=== PATIENT | female | born 1965 | race Caucasian/White ===

== ENCOUNTER 2016-10-01 13:16 | Emergency (ER) | payer OTHER ==
--- NOTE | 2016-10-01 14:13 | ERNOTE ---
Lower Extremity HPI - Narrative Date of Service: 10/01/16 - General Lower Extremities Pain: thigh: right Time Seen by Provider: 10/01/16 14:02 Source: patient, RN notes reviewed Exam Limitations: no limitations - Immun/Allergies/Home Medications Immunizations: IMMUNIZATION HX History of Influenza Vaccine No Hx Pneumococcal Vaccination No Allergies/Adverse Reactions: Allergies Allergy/AdvReac Type Severity Reaction Status Date / Time No Known Allergies Allergy Verified 10/01/16 13:36 Home Medications: HOME MEDICATIONS Atenolol [Tenormin] 50 mg PO DAILY 01/03/16 [Last Taken Unknown] Levothyroxine Sodium [Synthroid] 50 mcg PO DAILY 01/03/16 [Last Taken Unknown] Lisinopril [Zestril] 10 mg PO DAILY 01/03/16 [Last Taken Unknown] Clotrimazole/Betamethasone Dip [Lotrisone Cream] 1 appl TP BID 03/07/16 [Last Taken Unknown] Ergocalciferol [Calciferol, Vitamin D] 50,000 units PO Q7D 03/07/16 [Last Taken Unknown] Ranitidine HCl [Zantac] 300 mg PO HS 03/07/16 [Last Taken Unknown] Cyclobenzaprine HCl [Flexeril] 10 mg PO TID PRN #20 tab 10/01/16 [Last Taken Unknown] Ibuprofen [Motrin] 600 mg PO Q6H PRN #40 tab 10/01/16 [Last Taken Unknown] - History of Present Illness Narrative: 51 y/o female ambulatory to the ED with her for pain in her right leg that began 3 days ago without incident. She had a DVT in the same extremity approximately 6 months ago. Her Coumadin was stopped last month. Method of Injury: Reports: no apparent injury Modifying Factors - (Improves): Reports: rest Modifying Factors - (Worsens): Reports: movement Subsequent Symptoms: Denies: sensory loss, numbness, motor loss Prior Treament: Reports: similar symptoms before Review of Systems - Review of Systems Constitutional: Absent: recent illness, fever, chills EYE: Present: no symptoms reported ENT: Present: no symptoms reported Respiratory: Absent: shortness of breath, cough Cardiology: Absent: chest pain, edema Gastrointestinal/Abdominal: Absent: nausea, vomiting, abdominal pain Genitourinary: Present: no symptoms reported Musculoskeletal: Present: muscle pain. Absent: back pain, joint pain Skin: Absent: rash, lesions, lumps, change in color Neurological: Absent: weakness, numbness, tingling Endocrine: Present: no symptoms reported Hematologic/Lymphatic: Present: no symptoms reported Psych: Present: no symptoms reported - Patient's Past Medical History Patient History - Medical: No pertinent hx Patient History - Cardiac/Respiratory: Deep Vein Thrombosis, Hypertension, Hyperlipidemia Patient History - Cancer: No Hx of Cancer Patient History - Surgical Procedures: Colon Resection, Other Patient History - Other: None - Social History Living Situations: home Psych History: No pertinent hx Smoking Status: Never smoker Alcohol Use: none Drug Use: none - Immunizations Hx Pneumococcal Vaccination: No History of Influenza Vaccine: No Physical Exam - Physical Exam General Appearance: Present: wd/wn, alert, no apparent distress Neck: Present: normal inspection, nontender, supple Respiratory: Present: no respiratory distress, normal breath sounds, no accessory muscle use, lungs clear Cardiovascular/Chest: Present: regular rate, rhythm, no murmur, normal peripheral pulses Back Exam: Present: normal inspection, normal range of motion, no CVA tenderness , no vertebral tenderness Extremity Exam: Present: no edema, decreased range of motion - painful - right leg, tender to palpation along lateral thigh. Absent: pedal edema, joint swelling, extremity edema Neurological Exam: Present: alert, oriented, normal mood/affect, no motor/ sensory deficits Skin Exam: Present: normal color, warm/dry ED Progress - Results and Orders Patient's Lab Results:: I have reviewed the patient's lab results. - Vital Signs Patient's Vital Signs:: I have reviewed the patient's vital signs. Vital Signs: Vital Signs 10/01/16 13:31 Temperature 36.8 C Pulse Rate 77 Respiratory 14 Rate Blood Pressure 150/80 O2 Sat by Pulse 100 Oximetry - CT/Ultrasound CT/Ultrasound Narrative: US of RLE shows no evidence of DVT - Progress/Reassessment Chief Complaint: Lower Extremity Pain/ Injury Progress:: Unchanged Departure Clinical Impression: Right leg pain, Muscle strain - Departure Disposition: Home self-care Condition: Good Instructions: Muscle Strain, [id number], Form - Excuse from Work, School, or Physical Activity Additional Instructions: Heat to sore area as needed Follow up with your doctor if no improvement next week Referrals: Chichi Dent MD [Primary Care Provider] - Prescriptions: Cyclobenzaprine HCl [Flexeril] 10 mg PO TID PRN #20 tab PRN Reason: MUSCLE SPASMS Ibuprofen [Motrin] 600 mg PO Q6H PRN #40 tab PRN Reason: Pain
[2016-10-01] MEDS ORDERED: KETOROLAC TROMETHAMINE 60 MG/2 ML VIAL IM ONE ×2 (14:34→14:39)
[2016-10-01 15:00] LABS: Hematocrit 38.7 % (37.0-47.0); Hemoglobin 12.7 gm/dL (12.5-16.0); Mean Corpuscular Hemoglobin 31.5 pg (27-31); Mean Corpuscular Hgb Conc 32.8 g/dl (32-36); Mean Platelet Volume 10.5 fl (6.0-9.5); Neutrophil # 3.8 K/mm3 (1.3-6.0); Neutrophil % 47.3 % (42-75.0); Platelet Count 322 K/mm3 (150-450); Red Blood Count 4.03 M/mm3 (4.2-5.4); Red Cell Distribution Width 12.7 % (11.5-14.0)
[2016-10-01 15:08] LABS: BUN/Creatinine Ratio 23.6 (9.0-21.6); Bilirubin, Total 0.4 mg/dL (0.0-1.1); Ca. Corrected For Albumin 8.1 mg/dL (8.4-10.2); Calcium * 8.4 mg/dL (7.9-10.9); Carbon Dioxide 28.3 mmol/L (24-32.6); Potassium 4.3 mmol/L (3.4-4.6); Total Protein 7.7 gm/dL (6.2-8.2)
[2016-10-01 15:13] LABS: INR 0.96 INR (0.90-1.10)
--- OUTSIDE RECORDS SUMMARY | 2016-10-01 16:20 | XMS REPORT | Continuity of Care Document ---
:1965 Author Organization [facility] ([facility]) Address [address] [place] [address] Phone [phone] Care Team Providers Name Role Phone Chichi Dent Primary Care Provider [phone] Source Comments This disclosure is being made pursuant to the Care Everywhere program, applicable federal and state laws, and may not contain all informaitonavailable regarding this patient.[facility] ([facility]) Active Allergies and Adverse Reactions No Known Allergies Current Medications Prescription Sig. Disp. Refills Start Date End Date Status atenolol 50 mg Take 1 Tab by mouth 30 Tab 6 01/31/2014 Active tablet daily. Indications: HYPERTENSION lisinopril 10 mg Take 2 Tabs by mouth 60 Tab 6 01/31/2014 Active tablet daily. Indications: HYPERTENSION ranitidine 150 mg Take 1 Tab by mouth 2 120 Tab 11 01/31/2014 Active tablet times daily. Indications: GASTROESOPHAGEAL REFLUX DEXTRAN Instill onto the eye Active 70/HYPROMELLOSE as needed (ARTIFICIAL TEARS (PF) OPHTH) warfarin 5 mg tablet Take 5 mg by mouth Active daily. On Friday she takes 7.5 mg dorzolamide-timolol Instill 1 Drop onto 10 mL 11 01/29/2016 Active (COSOPT) 2-0.5 % the left eye 2 times ophthalmic solution daily. acetaminophen Take 650 mg by mouth Active (TYLENOL ARTHRITIS every 8 hours as PAIN) 650 mg CR needed. 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 Exotropia s/p strabismus surgery 02/19/2012 MGD (meibomian gland disease) 10/08/2011 Refractive error 09/13/2010 Status post Penetrating Keratoplasty, left eye, 09/201009/10/2010 Essential hypertension 05/17/2010 History of cornea transplant (PKP OS 09/10/10) 09/07/2009 Resolved Problems Problem Noted Date Resolved Date Astigmatism of right eye 09/23/2013 09/23/2013 Borderline steroid-induced glaucoma 05/10/2013 09/21/2013 Severe stage glaucoma 05/10/2013 08/28/2016 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 07/26/2015 Severe stage glaucoma 01/06/2013 03/17/2013 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, left eye 04/29/2012 03/17/2013 Overview: Versus post surgical glaucoma Irregular astigmatism 09/13/2010 02/13/2012 Exotropia of left eye 09/13/2010 07/01/2011 Amblyopia of left eye 09/13/2010 02/13/2012 Ocular hypertension left eye 09/12/2010 04/29/2012 Most Recent Encounters Date Type Specialty Providers Description 08/28/2016 Office Visit Ophthalmology - Danial Lazar MD Dx: Severe stage Specialty glaucoma (Primary Dx) 07/31/2016 Office Visit Ophthalmology - Danial Lazar MD Chief Comp: Patient Specialty Reported Reason For Visit Immunizations Name Dates Previously Given Next Due Influenza, PF 04/20/2012,08/13/2011 Influenza, quadrivalent PF 05/12/2013 Tdap 08/13/2011 Social History Tobacco Use Types Packs/Day Years Used Date Never Smoker Smokeless Tobacco: Never Used Tobacco Cessation:Counseling Given: Yes Comments: Alcohol Use Drinks/Week oz/Week Comments Yes 8 Cans of beer 4.0 3-4 beers once or twice a week . cut back a lot Last Filed Vital Signs Vital Sign Reading Time Taken Blood Pressure 110/51 01/10/2015 1:45 PM CDT Pulse 64 01/10/2015 10:02 AM CDT Temperature 36.4 C (97.5 F) 01/10/2015 1:20 PM CDT Respiratory Rate 14 01/10/2015 10:02 AM CDT Height 1.549 m (5' 1") 12/21/2014 3:13 PM CDT Weight 71.5 kg (157 lb 10.1 oz) 01/10/2015 10:02 AM CDT Body Mass Index 29.8 01/10/2015 10:02 AM CDT Oxygen Saturation 99% 01/10/2015 1:45 PM CDT Plan of Care Patient Goal Type Goal Diet Have 3 meals a day Decrease soda or juice intake Date Type Specialty Providers Description 03/17/2017 Appointment Ophthalmology - Danial Lazar MD Chief Comp: Patient Specialty [address] [place] [address] Visit [phone] (Fax) 05/21/2017 Appointment Ophthalmology - Vj San, Chief Comp: Patient Specialty MD Reported Reason For [address] [place] [address] [phone] (Fax) Health Maintenance Due Date Last Done Comments Hepatitis B Vaccine (1 of 3 1965 - Primary Series) MMR Vaccine 1984 Mammogram 04/20/2013 04/20/2012, 04/17/2011 Cervical Cancer Screening 11/03/2015 11/02/2012, Additional history exists 05/13/2012, 04/20/2012 Influenza Vaccine: Seasonal 03/04/2016 05/12/2013, (#1) 04/20/2012, 08/13/2011 Colonoscopy 08/10/2016 Lipid Disorder Screening 08/20/2017 08/20/2012, 08/13/2011, 05/17/2010 Td Vaccine 08/13/2021 08/13/2011 Tdap Vaccine Completed 08/13/2011 Results from Last 3 Months Not on file
[2016-10-01 16:53] VITALS: BP 154/83
== END 2016-10-01 15:32 | disposition home or self-care (01) ==
LOC: ER 13:16
DX: S76.911A Strain of unspecified muscles, fascia and tendons at thigh level, right thigh, initial encounter (principal); M79.604 Pain in right leg; Z86.718 Personal history of other venous thrombosis and embolism; I10 Essential (primary) hypertension

== ENCOUNTER 2016-12-23 13:31 | Emergency (ER) | payer OTHER ==
[2016-12-23 14:03] VITALS: BP 151/85
--- NOTE | 2016-12-23 14:33 | ERNOTE ---
Lower Extremity HPI - General Lower Extremities Pain: leg: right Time Seen by Provider: 12/23/16 14:23 Source: patient, family Exam Limitations: no limitations - Immun/Allergies/Home Medications Immunizations: IMMUNIZATION HX Immunizations Up to Date Yes History of Influenza Vaccine Yes Hx Pneumococcal Vaccination No Allergies/Adverse Reactions: Allergies Allergy/AdvReac Type Severity Reaction Status Date / Time No Known Allergies Allergy Verified 10/01/16 13:36 Home Medications: HOME MEDICATIONS Atenolol [Tenormin] 50 mg PO DAILY 01/03/16 [Last Taken Unknown] Levothyroxine Sodium [Synthroid] 50 mcg PO DAILY 01/03/16 [Last Taken Unknown] Lisinopril [Zestril] 10 mg PO DAILY 01/03/16 [Last Taken Unknown] Ergocalciferol [Calciferol, Vitamin D] 50,000 units PO Q7D 03/07/16 [Last Taken Unknown] Ranitidine HCl [Zantac] 300 mg PO HS 03/07/16 [Last Taken Unknown] Cyclobenzaprine HCl [Flexeril] 10 mg PO TID PRN #20 tab 10/01/16 [Last Taken Unknown] Ibuprofen [Motrin] 600 mg PO Q6H PRN #40 tab 10/01/16 [Last Taken Unknown] Cyclobenzaprine HCl [Flexeril] 10 mg PO TID PRN #30 tab 12/23/16 [Last Taken Unknown] Naproxen [Naprosyn] 500 mg PO BID #60 tablet 12/23/16 [Last Taken Unknown] predniSONE [Deltasone] 20 mg PO BID #10 tablet 12/23/16 [Last Taken Unknown] - History of Present Illness Narrative: Patient presents with right lateral thigh pain, she states that 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 Occurred: other - slowly over the past week or two Method of Injury: Reports: no apparent injury Modifying Factors - (Worsens): Reports: other - being on her feet all day Other Injuries: Reports: none Review of Systems - Review of Systems Constitutional: Present: See HPI EYE: Present: no symptoms reported ENT: Present: no symptoms reported Respiratory: Present: no symptoms reported Cardiology: Present: no symptoms reported Gastrointestinal/Abdominal: Present: no symptoms reported Genitourinary: Present: no symptoms reported Musculoskeletal: Present: See HPI, muscle pain Skin: Present: no symptoms reported Neurological: Present: no symptoms reported Endocrine: Present: no symptoms reported Hematologic/Lymphatic: Present: no symptoms reported Psych: Present: no symptoms reported - Patient's Past Medical History Patient History - Medical: No pertinent hx Patient History - Cardiac/Respiratory: Deep Vein Thrombosis, Hypertension, Hyperlipidemia Patient History - Cancer: No Hx of Cancer Patient History - Surgical Procedures: Colon Resection, Other Patient History - Other: None - Social History Living Situations: home Abuse History: No History of abuse Psych History: No pertinent hx Smoking Status: Never smoker Alcohol Use: none Drug Use: none - Immunizations Immunizations Up to Date: Yes Hx Pneumococcal Vaccination: No History of Influenza Vaccine: Yes Physical Exam - Physical Exam General Appearance: Present: wd/wn, alert, moderate distress Eye Exam: Normal inspection: bilateral, PERRL: bilateral Ears, Nose, Throat: Present: normal ENT inspection, H, normal pharynx Neck: Present: normal inspection, nontender Respiratory: Present: no respiratory distress, normal breath sounds, no accessory muscle use, chest nontender, lungs clear Cardiovascular/Chest: Present: regular rate, rhythm, no murmur, normal peripheral pulses Gastrointestinal/Abdominal: Present: normal bowel sounds, nontender, nondistended, soft, no organomegaly Rectal Exam: Present: deferred Back Exam: Present: normal inspection, normal range of motion Extremity Exam: Present: normal range of motion, no edema, other - muscle tenderness along the entire IT band on the right Neurological Exam: Present: alert, oriented, normal mood/affect Skin Exam: Present: normal color, warm/dry Lymphatic Exam: Present: no adenopathy ED Progress - Vital Signs Patient's Vital Signs:: I have reviewed the patient's vital signs. Vital Signs: Vital Signs 12/23/16 13:59 Temperature 36.7 C Pulse Rate 84 Respiratory 17 Rate Blood Pressure 151/85 O2 Sat by Pulse 100 Oximetry - Progress/Reassessment Chief Complaint: Lower Extremity Pain/ Injury Plan - Plan Plan: Patient will be started on a muscle relaxer, and NSAID and a brief course of some prednisone to try to help with the inflammation and the muscle spasm. Patient will try to get in to a regular muscle stretching regimen and will follow up with her family physician in approximately 1 week Departure Clinical Impression: IT band syndrome Qualifiers: Laterality: right Qualified Code(s): M76.31 - Iliotibial band syndrome, right leg - Departure Disposition: Home self-care Condition: Good Instructions: Muscle Cramps and Spasms Referrals: Chichi Dent MD [Primary Care Provider] - Prescriptions: Cyclobenzaprine HCl [Flexeril] 10 mg PO TID PRN #30 tab PRN Reason: MUSCLE SPASMS Naproxen [Naprosyn] 500 mg PO BID #60 tablet predniSONE [Deltasone] 20 mg PO BID #10 tablet
--- OUTSIDE RECORDS SUMMARY | 2016-12-23 14:36 | XMS REPORT | Continuity of Care Document ---
:1965 Author Organization [facility] ([facility]) Address [address] [place] [address] Phone [phone] Care Team Providers Name Role Phone Chichi Dent Primary Care Provider [phone] Source Comments This disclosure is being made pursuant to the Care Everywhere program, applicable federal and state laws, and may not contain all informaitonavailable regarding this patient.[facility] ([facility]) Active Allergies and Adverse Reactions No Known [...] 02/13/2012 Ocular hypertension left eye 09/12/2010 04/29/2012 Immunizations Name Dates Previously Given Next Due [...] Specialty [address] [place] [address] Visit [phone] (Fax) 05/26/2017 Appointment Ophthalmology - Vj San, Chief Comp: Patient Specialty MD Reported Reason For [address] [place] [address] [phone] (Fax) Health Maintenance Due Date Last Done Comments Hepatitis B Vaccine (1 of 3 1965 - Primary Series) MMR Vaccine 1984 Mammogram 04/20/2013 04/20/2012, 04/17/2011 Cervical Cancer Screening 11/03/2015 11/02/2012, Additional history exists 05/13/2012, 04/20/2012 Colonoscopy 08/10/2016 Lipid Disorder Screening 08/20/2017 08/20/2012, 08/13/2011, 05/17/2010 Td Vaccine 08/13/2021 08/13/2011 Tdap Vaccine Completed 08/13/2011 Influenza Vaccine: Seasonal Completed 05/12/2013, 04/20/2012, 08/13/2011 Results from Last 3 Months Not on file
== END 2016-12-23 14:37 | disposition home or self-care (01) ==
LOC: ER 13:31
DX: M76.31 Iliotibial band syndrome, right leg (principal); I10 Essential (primary) hypertension; E78.5 Hyperlipidemia, unspecified

== ENCOUNTER 2017-01-04 11:51 | Emergency (ER) | payer OTHER ==
--- OUTSIDE RECORDS SUMMARY | 2017-01-04 12:09 | XMS REPORT | Continuity of Care Document ---
:1965 Author Organization [facility] ([facility]) Address [address] [place] [address] Phone [phone] Care Team Providers Name Role Phone Chichi Dent Primary Care Provider [phone] Source Comments This disclosure is being made pursuant to the Care Everywhere program, applicable federal and state laws, and may not contain all informaitonavailable regarding this patient.[facility] ([facility]) Active Allergies and Adverse Reactions No Known [...] Specialty [address] [place] [address] Visit [phone] (Fax) 05/26/2017 Appointment Ophthalmology - Vj San, Chief Comp: Patient Specialty MD Reported Reason For [address] [place] [address] [phone] (Fax) Health Maintenance Due Date Last Done [...]
--- NOTE | 2017-01-04 12:21 | ERNOTE ---
Lower Extremity HPI - Narrative Date of Service: 01/04/17 - General Lower Extremities Pain: leg: right Time Seen by Provider: 01/04/17 12:02 Source: patient Exam Limitations: no limitations - Immun/Allergies/Home Medications Immunizations: IMMUNIZATION HX Immunizations Up to Date Yes History of Influenza Vaccine No Hx Pneumococcal Vaccination No Allergies/Adverse Reactions: Allergies Allergy/AdvReac Type Severity Reaction Status Date / Time No Known Allergies Allergy Verified 01/04/17 11:59 Home Medications: HOME MEDICATIONS Atenolol [Tenormin] 50 mg PO DAILY 01/03/16 [Last Taken Unknown] Levothyroxine Sodium [Synthroid] 50 mcg PO DAILY 01/03/16 [Last Taken Unknown] Lisinopril [Zestril] 10 mg PO DAILY 01/03/16 [Last Taken Unknown] Ergocalciferol [Calciferol, Vitamin D] 50,000 units PO Q7D 03/07/16 [Last Taken Unknown] Ranitidine HCl [Zantac] 300 mg PO HS 03/07/16 [Last Taken Unknown] Naproxen [Naprosyn] 500 mg PO BID PRN #60 tab 01/04/17 [Last Taken Unknown] - History of Present Illness Narrative: Pt. comes in with c/o R leg pain from her groin to her ankle. pt. states that pain worsens with ambulation and foot flexion. Pt. was seen a week ago in this ER and was started on steroids and Tylenol without relief in symptoms. Pt. had a recent DVT in August but is not n anticoagulation at this time. Review of Systems - Review of Systems Constitutional: Present: no symptoms reported. Absent: recent illness, fever, chills, weakness, fatigue, malaise EYE: Present: no symptoms reported ENT: Present: no symptoms reported Respiratory: Present: no symptoms reported. Absent: shortness of breath, cough , wheezing Cardiology: Present: no symptoms reported. Absent: chest pain, palpitations, edema Gastrointestinal/Abdominal: Present: no symptoms reported. Absent: nausea, vomiting, diarrhea Genitourinary: Present: no symptoms reported. Absent: frequency, decreased urinary output Musculoskeletal: Present: muscle pain - R mid thigh to ankle Skin: Present: no symptoms reported Neurological: Present: no symptoms reported. Absent: headache, dizziness/light- headedness, numbness, tingling All Other Systems: All systems neg except as marked - Patient's Past Medical History Patient History - Medical: No pertinent hx Patient History - Cardiac/Respiratory: Deep Vein Thrombosis, Hypertension, Hyperlipidemia Patient History - Cancer: No Hx of Cancer Patient History - Surgical Procedures: Colon Resection, Other Patient History - Other: None LMP (females 10-50): 1 month - Social History Living Situations: home Abuse History: No History of abuse Psych History: No pertinent hx Smoking Status: Never smoker Alcohol Use: none Drug Use: none - Immunizations Immunizations Up to Date: Yes Hx Pneumococcal Vaccination: No History of Influenza Vaccine: No Physical Exam - Physical Exam General Appearance: Present: wd/wn, alert, no apparent distress Eye Exam: Normal inspection: bilateral, PERRL: bilateral, EOMI: bilateral Ears, Nose, Throat: Present: normal ENT inspection, normal pharynx Neck: Present: normal inspection, nontender. Absent: lymphadenopathy (R), lymphadenopathy (L) Respiratory: Present: no respiratory distress, normal breath sounds, no accessory muscle use, chest nontender, lungs clear Cardiovascular/Chest: Present: regular rate, rhythm, no murmur, normal peripheral pulses Gastrointestinal/Abdominal: Present: normal bowel sounds, nontender, nondistended, soft, no organomegaly Back Exam: Present: normal inspection Extremity Exam: Present: pedal edema - trace, extremity edema - RLE trace, other - inner thigh tenderness to knee homans negative in calf but thigh pain with foot flexion. Absent: decreased range of motion, calf tenderness, bony tenderness Neurological Exam: Present: alert, oriented, normal mood/affect, no motor/ sensory deficits Skin Exam: Present: normal color, warm/dry. Absent: pallor, skin rash ED Progress - Date and Time Seen: Date and Time: 01/04/17 13:50 As clot is superficial pt. does not need anticoagulation but needs pain control and needs to use heat and elevation for symptom resolution. - Results and Orders Patient's Lab Results:: I have reviewed the patient's lab results. - Vital Signs Patient's Vital Signs:: I have reviewed the patient's vital signs. Vital Signs: Vital Signs 01/04/17 11:54 Temperature 36.6 C Pulse Rate 82 Respiratory 15 Rate Blood Pressure 178/101 O2 Sat by Pulse 97 Oximetry - CT/Ultrasound CT/Ultrasound Narrative: US positive for superficial saphrenous vein clot. - Progress/Reassessment Chief Complaint: Lower Extremity Pain/ Injury Progress:: Unchanged Departure Clinical Impression: Acute superficial venous thrombosis of right lower extremity - Departure Disposition: Home self-care Condition: Good Instructions: Vascular Ultrasound Additional Instructions: Please apply heat to leg and keep elevated as much as possible. Please take pain medication twice a day. Referrals: Chichi Dent MD [Primary Care Provider] - Prescriptions: Naproxen [Naprosyn] 500 mg PO BID PRN #60 tab PRN Reason: Pain
[2017-01-04 12:30] LABS: Hemoglobin 13.6 gm/dL (12.5-16.0); Mean Cell Volume 93.2 fl (78-100); Mean Corpuscular Hemoglobin 31.7 pg (27-31); Mean Platelet Volume 10.9 fl (6.0-9.5); Neutrophil % 65.3 % (42-75.0); Platelet Count 264 K/mm3 (150-450); Red Blood Count 4.29 M/mm3 (4.2-5.4); Red Cell Distribution Width 14.1 % (11.5-14.0); White Blood Count 10.8 K/mm3 (4.0-10.5)
[2017-01-04 12:33] LABS: Urine Appearance Clear; Urine Bilirubin Negative (NEGATIVE); Urine Color Yellow
[2017-01-04 12:34] LABS: Urine Bacteria None Seen; Urine Blood Negative /ul (NEGATIVE); Urine Ketone Negative (NEGATIVE); Urine Nitrite Negative (NEGATIVE); Urine Protein Negative (NEGATIVE); Urine RBC None Seen /hpf (0-5); Urine Urobilinogen Normal (NORMAL); Urine WBC 0-5 /hpf (0-5); Urine pH 5.5 pH (5.0-7.0)
[2017-01-04 12:58] LABS: Albumin * 4.6 gm/dl (3.4-5.0); BUN/Creatinine Ratio 27.5 (9.0-21.6); Bilirubin, Total 0.5 mg/dL (0.0-1.1); Ca. Corrected For Albumin 8.5 mg/dL (8.4-10.2); Calcium * 9.3 mg/dL (7.9-10.9); Potassium 3.7 mmol/L (3.4-4.6); Total Protein 8.1 gm/dL (6.2-8.2); Uric Acid 4.1 mg/dL (2.6-7.2)
[2017-01-04 13:02] LABS: Anion Gap 13.2 mmol/L (6.8-13.8); Carbon Dioxide 30.5 mmol/L (24-32.6)
[2017-01-04] MEDS ORDERED: KETOROLAC TROMETHAMINE 60 MG/2 ML VIAL IM ONE ×2 (13:51→14:01)
[2017-01-04 14:07] VITALS: BP 181/91
== END 2017-01-04 14:08 | disposition home or self-care (01) ==
LOC: ER 11:51
DX: I82.811 Embolism and thrombosis of superficial veins of right lower extremity (principal); I10 Essential (primary) hypertension

== ENCOUNTER 2017-03-16 08:16 | Emergency (ER) | payer OTHER ==
[2017-03-16 08:30] VITALS: BP 197/99
--- NOTE | 2017-03-16 09:04 | ERNOTE ---
ENT HPI Date of Service: 03/16/17 Presenting Symptoms: other - sore throat for two weeks Time Seen by Provider: 03/16/17 08:55 Source: patient Exam Limitations: no limitations - Immun/Allergies/Home Medications Immunizations: IMMUNIZATION HX Immunizations Up to Date Yes History of Influenza Vaccine No Hx Pneumococcal Vaccination No Allergies/Adverse Reactions: Allergies Allergy/AdvReac Type Severity Reaction Status Date / Time No Known Allergies Allergy Verified 01/04/17 11:59 Home Medications: HOME MEDICATIONS Levothyroxine Sodium [Synthroid] 50 mcg PO DAILY 01/03/16 [Last Taken Unknown] Ranitidine HCl [Zantac] 300 mg PO BID 03/07/16 [Last Taken Unknown] Fluticasone/Vilanterol [Breo Ellipta 200-25 Mcg INH] 1 each IH DAILY 03/05/17 [ Last Taken Unknown] Metoprolol Succinate [Toprol Xl] 50 mg PO DAILY 03/05/17 [Last Taken Unknown] Olmesartan Medoxomil 10 mg PO DAILY 03/05/17 [Last Taken Unknown] Warfarin Sodium [Coumadin] 2.5 mg PO SA 03/05/17 [Last Taken Unknown] Warfarin Sodium [Jantoven] 5 mg PO SUMOTUWETHFR 03/05/17 [Last Taken Unknown] Amoxicillin Trihydrate [Amoxil] 500 mg PO TID #30 cap 03/16/17 [Last Taken Unknown] Omeprazole [Prilosec] 20 mg PO DAILY 03/16/17 [Last Taken Unknown] - History of Present Illness Narrative: recent change in hypertension meds has had sore throat develop Severity: Present: moderate ENT Location: Present: throat Prearrival Treatment: Present: no prearrival treatment Modifying Factors - Improves: Reports: nothing Modifying Factors - Worsens: Reports: activity Associated Symptoms - ENT: Reports: poor fluid intake, nasal congestion/drainage Prior Treament: Reports: recently seen Review of Systems - Narrative Narrative: sore throat for two weeks - Review of Systems Constitutional: Present: See HPI, fever, fatigue, malaise EYE: Present: no symptoms reported ENT: Present: sore throat Respiratory: Present: no symptoms reported Cardiology: Present: no symptoms reported Gastrointestinal/Abdominal: Present: no symptoms reported Genitourinary: Present: no symptoms reported Musculoskeletal: Present: no symptoms reported Skin: Present: no symptoms reported Neurological: Present: no symptoms reported Endocrine: Present: no symptoms reported Hematologic/Lymphatic: Present: no symptoms reported - Patient's Past Medical History Patient History - Medical: No pertinent hx Patient History - Cardiac/Respiratory: Deep Vein Thrombosis, Hypertension, Hyperlipidemia Patient History - Cancer: No Hx of Cancer Patient History - Surgical Procedures: Colon Resection, Other Patient History - Other: None - Family History Family History:: no untoward family reactions to anesthesia, no familial bleeding tendencies, no family history of premature - Social History Living Situations: home Abuse History: No History of abuse Psych History: No pertinent hx Does anyone smoke in the home?: No Smoking Status: Never smoker Have you smoked in the past 12 months: No Patient requests Smoking Cessation Consult: No Initiate information on Smoking Cessation: No Alcohol Use: none Drug Use: none - Immunizations Immunizations Up to Date: Yes Hx Pneumococcal Vaccination: No History of Influenza Vaccine: No Physical Exam - Physical Exam General Appearance: Present: alert, mild distress, anxious Head Exam: Present: normal inspection Eye Exam: Normal inspection: bilateral, PERRL: bilateral, EOMI: bilateral Ears, Nose, Throat: Present: pharyngeal erythema, pharyngeal swelling Neck: Present: normal inspection, nontender Respiratory: Present: no respiratory distress, normal breath sounds, no accessory muscle use, chest nontender, lungs clear Cardiovascular/Chest: Present: regular rate, rhythm, no murmur, normal peripheral pulses Peripheral Pulses: N=norm/S=strong/W=weak/B=bound/A=absent: Carotid (R): Normal , Carotid (L): Normal, Radial (R): Normal, Radial (L): Normal, Femoral (R): Normal, Femoral (L): Normal, Dorsalis-pedis (R): Normal, Dorsalis-pedis (L): Normal Gastrointestinal/Abdominal: Present: normal bowel sounds, nontender, nondistended, soft, no organomegaly Back Exam: Present: normal inspection, normal range of motion, no CVA tenderness , no vertebral tenderness Extremity Exam: Present: normal inspection, non-tender, normal range of motion, no edema Neurological Exam: Present: alert, oriented, normal mood/affect, no motor/ sensory deficits DTR: N=norm/NB=norm/brisk/A=abs/DD=dull/dimin/HC=hyperactive: Bicep (R): Normal , Bicep (L): Normal, Tricep (R): Normal, Tricep (L): Normal, Knee (R): Normal, Knee (L): Normal, Ankle (R): Normal, Ankle (L): Normal Skin Exam: Present: normal color, warm/dry Lymphatic Exam: Present: no adenopathy ED Progress - Vital Signs Patient's Vital Signs:: I have reviewed the patient's vital signs. Vital Signs: Vital Signs 03/16/17 08:24 Temperature 36.8 C Pulse Rate 70 Respiratory 14 Rate Blood Pressure 197/99 O2 Sat by Pulse 98 Oximetry - Progress/Reassessment Chief Complaint: Sore Throat Progress:: Unchanged Departure Clinical Impression: Pharyngitis - Departure Condition: Fair Instructions: Sore Throat, [id number] Referrals: Chichi Dent MD [Primary Care Provider] - Prescriptions: Amoxicillin Trihydrate [Amoxil] 500 mg PO TID #30 cap
== END 2017-03-16 09:06 | disposition home or self-care (01) ==
LOC: ER 08:16
DX: J02.9 Acute pharyngitis, unspecified (principal); I10 Essential (primary) hypertension; E78.5 Hyperlipidemia, unspecified; Z86.718 Personal history of other venous thrombosis and embolism; Z79.01 Long term (current) use of anticoagulants